=== PATIENT | female | born 1985 | race Caucasian/White ===

== ENCOUNTER 2022-04-20 09:03 | Emergency (ER) | payer OTHER, SELFPAY ==
--- NOTE | ~2022-04-20 | US_ITS ---
EXAMINATION: US OBSTETRICAL ULTRASOUND CLINICAL INFORMATION: Vaginal bleeding with pain. LMP 04/14/2022. COMPARISON: Pelvic ultrasound dated from 12/17/2013. CT abdomen/pelvis dated from 12/07/2015.. LMP: 04/14/2022. Gestational age by maternal dates is 6 days. Estimated date of delivery by maternal dates is 01/19/2023. TECHNIQUE: Ultrasound of the maternal pelvis is performed using transabdominal and transvaginal transducers. Transvaginal imaging is performed due to inadequate visualization transabdominally. FINDINGS: The uterus was not measured by the technologist. No fibroids are identified. No intrauterine gestational sacs are noted. The endometrium measures up to 0.6 cm in thickness and demonstrates heterogeneous debris with equivocal associated vascularity. Limited evaluation of the cervix due to overlying shadowing from bowel gas. The ovaries are normal in morphology with preserved color flow at the moment of this examination. The right ovary measures 3.4 x 2.3 x 2.3 cm and the left ovary measures 1.7 x 2.5 x 1.7 cm. There is a 1.3 cm simple appearing cyst originating exophytically from the left ovary versus a paraovarian cyst. Moderate amount of free fluid. US/US OB pelvic and transvaginal IMPRESSION: No evidence of intrauterine . Recommend correlation with quantitative hCG. Heterogeneous endometrial content which could be associated with blood products. However, there is some equivocal vascularity and retained product of conception are not entirely excluded. Recommend correlation with quantitative hCG and a very short-term follow-up pelvic ultrasound. Moderate amount of free fluid in the pelvis. There is a 1.3 cm simple left ovarian versus paraovarian cyst, almost certainly benign and for which imaging no follow-up is recommended.
[2022-04-20 09:39] VITALS: BP 123/72; PULSE 74; RESP 19; TEMP 36.2; O2SAT 99; BMI 35.2
--- NOTE | 2022-04-20 09:43 | ED_ITS ---
HPI - Female Genitourinary General Chief complaint: Vaginal Bleeding Stated complaint: heavy vaginal bleeding quest miscarriage Time Seen by Provider: 04/20/22 09:43 Source: patient Mode of arrival: ambulatory Limitations: no limitations History of Present Illness HPI Narrative: 36 yo female with hx of irregular menses unsure why, G4PO all miscarriages not on control states she never had it worked up why she had miscarriages notes she started a ligther than usual period on thought she would be done today. On her way to work developed cramping and passed a stringy clot since then has had heavier bleeding not that much but was worried she was having another miscarriage. Has not taken a test at home. MD elicited complaint: vaginal bleeding Pertinent past history: prior miscarriages Onset (ago): day(s) (7) Location of symptoms: suprapubic Severity: moderate Quality of pain: cramping Vaginal bleeding: moderate and clots Exacerbating factors: menstrual period Relieving factors: none Associated symptoms: abdominal pain Sexual activity: Yes Possible : unsure if Related Data Allergies Allergy/AdvReac Type Severity Reaction Status Date / Time Penicillins [PENICILLINS] Allergy Unknown UNKNOWN Verified 04/20/22 09:39 Review of Systems Review of Systems: Constitutional : No Fever, No Chills ENT/Mouth : No sore throat, No Rhinorrhea Eyes: No Eye Pain, No Redness Cardiovascular : No Chest Pain, No SOB Respiratory : No Cough, No Sputum, No Wheezing Gastrointestinal : no Nausea, No Vomiting, No Diarrhea, positive abdominal pain, Genitourinary : positive irregular bleeding, No Dysuria, No Urinary Frequency, positive pelvic pain Musculoskeletal : No Myalgias Skin : No rash Neuro : No Weakness, No Headache Psych : No Anxiety/Panic, No Depression Heme/Lymph: No bruising, No Lymphadenopathy Endocrine : No Polyuria, No Polydipsia All other systems reviewed and are negative [facility] Past Medical History Attestation statement: The following information was validated with the patient. Medical History History of multiple miscarriages Irregular menses Social History Social History (Updated 04/20/22 @ 09:59 by Elodia Chan DO) Patient Tobacco Use Status: Never used Tobacco Substance Use Type: Marijuana Advance Directives: No Advance Directives Information Provided: No Physical Exam Vital Signs: Vital Signs: Last Vital Signs Temp 97.8 F 04/20/22 10:11 Pulse 66 04/20/22 10:11 Resp 14 04/20/22 10:11 BP 135/83 04/20/22 10:11 Pulse Ox 96 04/20/22 10:11 O2 Del Method 04/20/22 10:11 BMI result Body Mass Index 35.2 Appearance: Alert. Oriented X3. No acute distress. Eyes: Pupils equal, round and reactive to light. ENT: Pharynx normal. Neck: Normal inspection. Neck supple. CVS: Normal heart rate and rhythm. Pulses normal. Respiratory: No respiratory distress. Breath sounds normal. Abdomen: Soft and mild suprapubic pain no rebound : os is closed, brb in vault no tissue or clots seen, 2 scopettes of blood seen Skin: Skin warm and dry. Normal skin color. Normal skin turgor. Extremities: No lower extremity edema. No calf ttp Neuro: Oriented X 3. No motor deficit. No sensory deficit. Course Course Course Narrative: B neg - Rhogam ordered OB aware unless US concerning follow up with quant in 24 hours given outpatient lab slip for quant VS stable no sig bleeding DC home with OB follow up with Dr. Saunders MDM - Female Genitourinary MDM Narrative Medical decision making narrative: 36 yo female with hx of irregular menses and prior miscarriages presents with irregular bleeding and cramps - os is closed no tissue seen at this time will need labs, quant, PO pain control. Unsure if this painful menses vs miscarriage - dispo per quant. Lab Data Result diagrams: 04/20/22 10:05 04/20/22 10:05 Labs: Lab Results 04/20/22 04/20/22 04/20/22 Range/Units 10:05 10:05 10:05 WBC 8.2 (4.8-10.8) X10*3/uL RBC 4.81 (4.20-5.50) X10*6/uL Hgb 13.6 (12.0-16.0) g/dl Hct 40.6 (37.0-47.0) % MCV 84.4 (80.0-98.0) fL MCH 28.3 (27.0-33.0) pg MCHC 33.5 (31.0-35.0) g/dl RDW 13.2 (11.0-16.0) % Plt Count 358 (160-400) X10*3/uL MPV 8.2 L (9.4-12.3) fL Immature Gran % (Auto) 1.0 H (0.0-0.4) % Neut % (Auto) 53.9 (45-73) % Lymph % (Auto) 35.6 (20-40) % [place] % (Auto) 8.0 (2-11) % Eos % (Auto) 1.0 (0-4) % Baso % (Auto) 0.5 (0-2) % Lymph # (Auto) 2.9 (1.2-4.9) X10*3/uL [place] # (Auto) 0.7 (0.1-1.2) X10*3/uL Eos # (Auto) 0.1 (0.0-0.4) X10*3/uL Baso # (Auto) 0.0 (0.0-0.2) X10*3/uL Abs Immat Gran (auto) 0.08 H (0.00-0.03) X10*3/uL Absolute Neuts (auto) 4.4 (2.0-8.3) x10*3/uL Absolute Nucleated RBC 0.000 (0.0-0.012) X10*3/uL Nucleated RBC % (auto) 0.0 (0.0-0.2) /100WBC PT 12.0 (10.0-13.1) SEC INR 1.0 (0.9-1.1) Sodium 136 (135-145) mmol/L Potassium 4.1 (3.3-5.1) mmol/L Chloride 105 (96-108) mmol/L Carbon Dioxide 20 L (22-29) mmol/L Anion Gap 15 (12-20) BUN 9 (9-16) mg/dL Creatinine 0.67 (0.5-1.4) mg/dL Estim Creat Clear Calc 134.4 Estimated GFR > 60 Random Glucose 109 (60-115) mg/dL Calcium 9.6 (8.4-10.2) mg/dL Total Bilirubin 0.5 (0.0-1.0) mg/dL Direct Bilirubin 0.2 (0.0-0.5) mg/dL AST 19 (5-31) U/L ALT 29 (0-31) U/L Alkaline Phosphatase 47 (39-117) U/L Total Protein 6.8 (6.5-8.0) g/dL Albumin 4.2 (3.5-5.0) g/dL Beta HCG, Quant 22 mIU/mL Blood Type 04/20/22 Range/Units 10:48 WBC (4.8-10.8) X10*3/uL RBC (4.20-5.50) X10*6/uL Hgb (12.0-16.0) g/dl Hct (37.0-47.0) % MCV (80.0-98.0) fL MCH (27.0-33.0) pg MCHC (31.0-35.0) g/dl RDW (11.0-16.0) % Plt Count (160-400) X10*3/uL MPV (9.4-12.3) fL Immature Gran % (Auto) (0.0-0.4) % Neut % (Auto) (45-73) % Lymph % (Auto) (20-40) % [place] % (Auto) (2-11) % Eos % (Auto) (0-4) % Baso % (Auto) (0-2) % Lymph # (Auto) (1.2-4.9) X10*3/uL [place] # (Auto) (0.1-1.2) X10*3/uL Eos # (Auto) (0.0-0.4) X10*3/uL Baso # (Auto) (0.0-0.2) X10*3/uL Abs Immat Gran (auto) (0.00-0.03) X10*3/uL Absolute Neuts (auto) (2.0-8.3) x10*3/uL Absolute Nucleated RBC (0.0-0.012) X10*3/uL Nucleated RBC % (auto) (0.0-0.2) /100WBC PT (10.0-13.1) SEC INR (0.9-1.1) Sodium (135-145) mmol/L Potassium (3.3-5.1) mmol/L Chloride (96-108) mmol/L Carbon Dioxide (22-29) mmol/L Anion Gap (12-20) BUN (9-16) mg/dL Creatinine (0.5-1.4) mg/dL Estim Creat Clear Calc Estimated GFR Random Glucose (60-115) mg/dL Calcium (8.4-10.2) mg/dL Total Bilirubin (0.0-1.0) mg/dL Direct Bilirubin (0.0-0.5) mg/dL AST (5-31) U/L ALT (0-31) U/L Alkaline Phosphatase (39-117) U/L Total Protein (6.5-8.0) g/dL Albumin (3.5-5.0) g/dL Beta HCG, Quant mIU/mL Blood Type B Negative Discharge Plan Discharge Clinical Impression: Vaginal bleeding, Positive blood test Patient Disposition: Home, Self-Care Instructions: Rho(D) Immune Globulin (By injection), Threatened Miscarriage ( ED), (ED) Additional Instructions: return to ED for any worsening symptoms or concerns return for dizziness, increase in bleeding, clots larger than a quarter, severe pain repeat hormone test in 48 hours - present to main entrance, please follow up with our OB clinic call today for appointment in 48 hours no sexual intercourse US/US OB pelvic and transvaginal IMPRESSION: No evidence of intrauterine . Recommend correlation with quantitative hCG. ? Heterogeneous endometrial content which could be associated with blood products. However, there is some equivocal vascularity and retained product of conception are not entirely excluded. Recommend correlation with quantitative hCG and a very short-term follow-up pelvic ultrasound. ? Moderate amount of free fluid in the pelvis. ? There is a 1.3 cm simple left ovarian versus paraovarian cyst, almost certainly benign and for which imaging no follow-up is recommended. Referrals: Fuad Saunders MD [Physician] - (follow up tomorrow with Dr. Saunders) Stand Alone Forms: Work/School Release
[2022-04-20 10:10] LABS: MANUAL DIFF FLAG NO
[2022-04-20 10:11] VITALS: BP 135/83; PULSE 66; RESP 14; TEMP 36.6; O2SAT 96
[2022-04-20 10:18] LABS: Basophils Percent Auto 0.5 % (0-2); Eosinophils Absolute Auto 0.1 X10*3/uL (0.0-0.4); Hematocrit 40.6 % (37.0-47.0); Hemoglobin 13.6 g/dl (12.0-16.0); Imm Gran Abs Auto 0.08 X10*3/uL (0.00-0.03); Lymphocytes Absolute Auto 2.9 X10*3/uL (1.2-4.9); Lymphocytes Percent Auto 35.6 % (20-40); Mean Corpuscular HGB Conc 33.5 g/dl (31.0-35.0); Mean Corpuscular Hemoglobin 28.3 pg (27.0-33.0); Mean Corpuscular Volume 84.4 fL (80.0-98.0); Mean Platelet Volume 8.2 fL (9.4-12.3); Monocytes Absolute Auto 0.7 X10*3/uL (0.1-1.2); Neutrophils Absolute Auto 4.4 x10*3/uL (2.0-8.3); Neutrophils Percent Auto 53.9 % (45-73); Platelet Count 358 X10*3/uL (160-400); Red Blood Count 4.81 X10*6/uL (4.20-5.50); Red Cell Distribution Width 13.2 % (11.0-16.0); White Blood Count 8.2 X10*3/uL (4.8-10.8)
[2022-04-20] MEDS: HYDROcodone Bit/Acetam 5/325 TABLET 1 TAB PO (10:21)
[2022-04-20] MEDS: Ondansetron ODT 4 MG TAB.RAPDIS TRANSLINGU (10:21)
--- NOTE | 2022-04-20 10:29 | PC.NURSE ---
Pt ao x4. Regular heart sounds with normal rhythm. Lung sounds are clear bilaterally. Breaths are even and unlabored. Abd is soft, and tender, with active bowel sounds in all quadrants. Pt reports severe lower abd pain with vaginal bleeding. Started menses last , 04/14/22, with some spotting but this morning bleeding was heavier with what pt describes a string discharge. Pt is on second maxi pad since 0700. Reports hx of miscarriage and expresses concerns.
[2022-04-20 10:30] LABS: Alanine Aminotransferase 29 U/L (0-31); Albumin Level 4.2 g/dL (3.5-5.0); Alkaline Phosphatase 47 U/L (39-117); Anion Gap 15 (12-20); Aspartate Amino Transferase 19 U/L (5-31); Bilirubin Direct 0.2 mg/dL (0.0-0.5); Bilirubin Total 0.5 mg/dL (0.0-1.0); Blood Urea Nitrogen 9 mg/dL (9-16); Calcium 9.6 mg/dL (8.4-10.2); Carbon Dioxide 20 mmol/L (22-29); Chloride 105 mmol/L (96-108); Creatinine Clr Calc Pharmacy 134.4; Estimated Glomerular Filt Rate > 60; Glucose Random 109 mg/dL (60-115); HCG Quantitative 22 mIU/mL; Potassium 4.1 mmol/L (3.3-5.1); Sodium 136 mmol/L (135-145); Total Protein 6.8 g/dL (6.5-8.0)
[2022-04-20] MEDS: Rho(D) Immune Globulin 300 MCG SYRINGE IM (12:09)
--- NOTE | 2022-04-20 13:12 | P.CONOB_ITS ---
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 The patient has oligomenorrhea and have menstrual cycle every 3-4 months. Yesterday the patient started having vaginal bleeding light with no pelvic cramping no other associated symptoms, this morning the patient woke up with heavy vaginal bleeding and pelvic cramping . In the emergency room H&H = 13.6/40.4, chemistry was negative, hCG is 22, Rh negative, the patient received RhoGAM. A pelvic ultrasound was done. The patient pelvic cramping has resolved and bleeding has slowed down markedly since arrival to the emergency room cc:: CC: IP NETWORK ARCHITECT - Review of Systems Review of Systems ROS Unobtainable: All systems reviewed & are unremarkable except as noted in HPI and below Cardiovascular: Denies Palpatations, Loss of consciousness or Chest pain Respiratory: Denies Cough, Wheezing or Shortness of breath Musculoskeletal: Denies Low back pain Gastrointestinal: Denies Heartburn, Constipation, Diarrhea, Nausea or Vomiting Genitourinary: Denies Pain with urination, Burning with urination or Urinary frequency Neurological: Denies Migranes Psychological: Denies Depression OB PMFSH Past Medical History Medical History (Updated 04/20/22 @ 13:42 by Fuad Saunders MD) Ectopic History of multiple miscarriages Irregular menses Social History Social History Patient Tobacco Use Status: Never used Tobacco Substance Use Type: Marijuana Advance Directives: No Advance Directives Information Provided: No Meds Allergies Allergy/AdvReac Type Severity Reaction Status Date / Time Penicillins [PENICILLINS] Allergy Unknown UNKNOWN Verified 04/20/22 09:39 MICA MACHINE OPERATOR Physical Exam Vitals Vital signs: Temp Pulse Resp BP Pulse Ox O2 Del Method 97.8 F 66 14 135/83 96 04/20/22 10:11 04/20/22 10:11 04/20/22 10:11 04/20/22 10:11 04/20/22 10:11 04/20/22 10:11 BMI result Body Mass Index 35.2 Constitutional General Appearance: Healthy appearing, Well-nourished and Well-developed Psychiatric Mood and Affect: active and alert, normal mood and normal affect Skin Appearance: No rashes and No lesions Lungs Respiratory Effort: No intercostal retractions Auscultation: Clear to auscultation Cardiovascular Auscultation: RRR Abdomen Auscultation/Inspection/Palpation: Normal bowel sounds, Soft, Non-distended and No tenderness Female Genitalia (Pelvic) Bladder/Urethra: Normal meatus Vulva: No lesions Vagina: Nontender Cervix: Grossly normal and No cervical motion tenderness Uterus: Normal size Adnexa/Parametria: Adnexal Tenderness: None, Adnexal Mass: None, Parametrial Tenderness: None and Parametrial Mass: None Additional Comments: Minimal blood per vagina, closed cervix, no active bleeding MICA MACHINE OPERATOR - Results Labs CBC & Chem 7: 04/20/22 10:05 04/20/22 10:05 Labs: Short CBC 04/20/22 Range/Units 10:05 WBC 8.2 (4.8-10.8) X10*3/uL Hgb 13.6 (12.0-16.0) g/dl Hct 40.6 (37.0-47.0) % Plt Count 358 (160-400) X10*3/uL BMP 04/20/22 10:05 Sodium 136 Potassium 4.1 Chloride 105 Carbon Dioxide 20 L BUN 9 Creatinine 0.67 Calcium 9.6 Liver Function 04/20/22 Range/Units 10:05 Total Bilirubin 0.5 (0.0-1.0) mg/dL Direct Bilirubin 0.2 (0.0-0.5) mg/dL AST 19 (5-31) U/L ALT 29 (0-31) U/L Alkaline Phosphatase 47 (39-117) U/L Albumin 4.2 (3.5-5.0) g/dL Imaging US - abdomen: Radiologist's impression: ITS Impressions Pelvic/Transvag US 04/20/22 11:14 IMPRESSION: No evidence of intrauterine . Recommend correlation with quantitative hCG. Heterogeneous endometrial content which could be associated with blood products. However, there is some equivocal vascularity and retained product of conception are not entirely excluded. Recommend correlation with quantitative hCG and a very short-term follow-up pelvic ultrasound. Moderate amount of free fluid in the pelvis. There is a 1.3 cm simple left ovarian versus paraovarian cyst, almost certainly benign and for which imaging no follow-up is recommended. Assessment and Plan (1) First trimester bleeding: Status: Acute GC and chlamydia, BV panel and Trichomonas collected. Discussed with the patient the results of her hCG being 22 and the ultrasound showing endometrial content which could be blood products versus retained products of conception. With the patient's history of ectopic , I explained to the patient there is a risk of recurrent ectopic . The differential diagnosis discussed with the patient includes not limited to: ectopic ,SAB (complete or incomplete) or early viable intrauterine . Recommended a repeat hCG in 24 hours, and follow-up in the office for an evaluation. Instructions given the patient to come back to emergency room in case of week pain, heavy vaginal bleeding temperature above 100.4, nausea or vomiting. All questions answered, the patient verbalized understanding. Case discussed with Dr. Chan.
--- NOTE | 2022-04-20 13:30 | PC.NURSE ---
Dr Saunders (OBGYN) performing pelvic exam with PCTLucila, at bedside. Pt tolerated well. Cultures sent to lab.
[2022-04-20 13:44] VITALS: BP 114/75; PULSE 68; RESP 14; O2SAT 98
[2022-04-20 16:02] LABS: CT PCR NOT DETECTED (Not Detect.); NG PCR NOT DETECTED (Not Detect.)
[2022-04-21 13:45] LABS: BV Int Neg Control Negative (Negative); BV Int Pos Control Positive (Positive)
== END 2022-04-20 13:45 | disposition home or self-care (01) ==
PROVIDERS: Emergency Provider Emergency Medicine; PCP Nurse Practitioner Family
DX: O20.9 Hemorrhage in early pregnancy, unspecified (principal); Z3A.01 Less than 8 weeks gestation of pregnancy
CPT/HCPCS: 36415; 76801; 76817; 80048; 80076; 84702; 85025; 85610; 86900; 86901; 87480; 87491; 87510; 87591; 87660; 96372; 99284; J2790

== ENCOUNTER 2022-04-21 09:06 | Outpatient (REF) | payer OTHER, SELFPAY ==
[2022-04-21 10:15] LABS: HCG Quantitative 15 mIU/mL
== END 2022-04-21 09:07 | disposition home or self-care (01) ==
LOC: HO.LAB 09:06
PROVIDERS: Obstetrics & Gynecology; PCP Nurse Practitioner Family; Visit Provider Emergency Medicine
DX: O20.9 Hemorrhage in early pregnancy, unspecified (principal)
CPT/HCPCS: 36415; 84702; 99212

== ENCOUNTER 2022-05-03 09:35 | Outpatient (REF) | payer OTHER, SELFPAY ==
[2022-05-03 12:07] LABS: HCG Quantitative < 2 mIU/mL
== END 2022-05-03 09:36 | disposition home or self-care (01) ==
LOC: HO.LAB 09:35
PROVIDERS: Visit Provider Obstetrics & Gynecology
DX: O20.9 Hemorrhage in early pregnancy, unspecified (principal)
CPT/HCPCS: 36415; 84702

== ENCOUNTER → 2022-05-04 13:01 | Outpatient (BNVA) | payer OTHER, SELFPAY | PROVIDERS: PCP Nurse Practitioner Family; Visit Provider Obstetrics & Gynecology | DX: O03.9 Complete or unspecified spontaneous abortion without complication (principal); N96 Recurrent pregnancy loss | CPT/HCPCS: 99212 ==

== ENCOUNTER 2023-02-20 03:57 | Emergency (ER) | payer MEDICAID, SELFPAY ==
[2023-02-20 03:59] VITALS: BP 150/85; PULSE 108; RESP 22; TEMP 36.4; O2SAT 100; BMI 34.9
--- NOTE | 2023-02-20 04:40 | ED_ITS ---
HPI - General Adult General Chief complaint: Skin/Abscess/Foreign Body Stated complaint: Abscess Time Seen by Provider: 02/20/23 04:38 Source: patient Mode of arrival: ambulatory Limitations: no limitations History of Present Illness HPI narrative: 37-year-old female came in for evaluation of possible abscess and in the right private area, started 1 day ago, patient is sexually active with 1 person was no concern of STD. Related Data Home Medications Medication Instructions Recorded Confirmed atorvastatin 20 mg tablet 20 mg PO DAILY 04/21/22 Previous Rx's Medication Instructions Recorded misoprostol 200 mcg tablet 800 mcg vaginal ONCE 1 day #4 tabs 04/21/22 Allergies Allergy/AdvReac Type Severity Reaction Status Date / Time Penicillins [PENICILLINS] Allergy Unknown UNKNOWN Verified 05/04/22 13:10 Review of Systems Review of Systems: All other systems are reviewed and are negative Constitutional: Reports as per HPI and Reports no additional constitutional complaints Eyes: Reports as per HPI and Reports no additional eye complaints Reports system reviewed and no additional complaints, except as documented Cardiovascular: Reports as per HPI and Reports no additional cardiovascular complaints Respiratory: Reports as per HPI and Reports no additional respiratory complaints Gastrointestinal: Reports as per HPI and Reports no additional gastrointestinal complaints Genitourinary: Reports no additional female genitourinary complaints Musculoskeletal: Reports no additional musculoskeletal complaints Skin/Breast: Reports system reviewed and no additional complaints, except as docu Psychiatric: Reports no additional psychiatric complaints Endocrine: Reports no additional endocrine complaints Hematologic/Lymphatic: Reports no additional hematologic/lymphatic complaints Allergic/Immunologic: Reports no additional allergic/immunologic complaints Reports system reviewed and no additional complaints, except as documented and Reports Abnormal speech present [facility] Past Medical History Medical History Ectopic History of multiple miscarriages Irregular menses Social History Social History Alcohol intake: never Patient Tobacco Use Status: Never used Tobacco Smoked in Last 30 Days: No Use of substances other than those prescribed or required for medical reasons: Yes Substance Use Type: Marijuana Advance Directives: No Advance Directives Information Provided: Yes Patient : No Physical Exam ED Vital Signs: Vital Signs - 24 hr 02/20/23 03:59 Temperature 97.6 F Pulse Rate 108 H Respiratory Rate 22 H Blood Pressure 150/85 H Pulse Oximetry 100 Oxygen Delivery Method Room Air BMI result Body Mass Index 34.9 Vital signs have been reviewed as appeared to be correct. Blood pressure normal. Heart rate normal. Respiration rate normal. Temperature normal. Oxygen saturation normal. Appearance: Alert. Oriented X3. No acute distress. Head: Normal external exam. Normocephalic. Atraumatic. No Mart signs noted. No raccoon eyes noted Eyes: PERRLA. EOMI. Conjunctiva and sclera normal. Eyelids normal. ENT: TM's Normal. Pharynx normal. Uvula midline. Moist mucous membranes. No trismus noted. No drooling noted. No muffled voice noted. Neck: Normal inspection. Neck supple. FROM. No adenopathy. Thyroid Normal. No meningeal signs. No neck mass noted. CVS: Normal heart rate and rhythm. Heart sound normal. No murmurs noted. Pulses normal throughout. Respiratory: No respiratory distress. Painless inspiration. Breath sounds normal. No wheezes/rales/rhonchi noted. Chest nontender. No accessory muscle usage noted or decreased air movement noted. Abdomen: Soft and nontender. Bowel sounds normal in all 4 quadrants. No distention noted. No organomegaly noted. No visible injury noted. pelvic exam: 2 x 2 cm area of fluctuation on the right labia majora tender to touch. Back: No CVA tenderness. Full range of motion noted. Skin: Skin warm and dry. Normal skin color. Normal skin turgor. No rashes/lesions/lacerations noted. Extremities: No lower extremity edema. Extremities exhibit normal range of motion. Extremities nontender. Neuro: Oriented X 3. Cranial nerve exam: II-XII are grossly intact No motor deficit. No sensory deficit. Reflexes normal. Course Course Course Narrative: S/p I&D of abscess of Bartholin's gland Medications Administered Discontinued Medications Generic Name Dose Route Start Last Admin Trade Name Freq PRN Reason Stop Dose Admin Lidocaine HCl 5 ml 02/20/23 04:38 02/20/23 04:44 Lidocaine Hcl 1 % Mpf 5 Ml Vial SUBCUT 02/20/23 04:39 5 ml ONCE ONE Administration Lorazepam 2 mg 02/20/23 04:38 02/20/23 04:44 Lorazepam 1 Mg Tablet PO 02/20/23 04:39 2 mg ONCE ONE Administration Procedures Abscess I/D Site: bartholin's gland Side (if applicable): right Local Anesthetic: lidocaine 1% Amount of anesthesia used (mL): 3 Technique: incised with blade (Size 11) Amount of fluid expressed (mL): 5 Sent for culture/gram staining?: No Irrigation: No Packing used?: none Discharge Plan Discharge Clinical Impression: Abscess of Bartholin's gland Patient Disposition: Home, Self-Care Instructions: Incision and Drainage (ED) Prescriptions: No Action atorvastatin 20 mg tablet 20 mg PO DAILY misoprostol 200 mcg tablet 800 mcg vaginal ONCE 1 Days Qty: 4 0RF Rx Instructions: Inset 800 mcg vaginal dose x1 Referrals: Fuad Saunders MD [Physician] -
--- OUTSIDE RECORDS SUMMARY | 2023-02-20 04:40 | XMS_ITS | Continuity of Care Document ---
Author Name Unknown Organization [facility] Address [address] [place] [address], [address]t [address] [place] [phone] Care Team Providers Care Spud Grader Name Role Phone Not on Staff, PCP Primary Care Physician Unavail able Encounter [facility] Date(s): 07/05/22 - 08/04/22 [facility] [address] [place] [address], [address] [place] [id number] Attending Physician: Cher Rivero Admitting Physician: Cher Rivero Referring Physician: Admtr [id number] Patient Care team information Care Team Personnel Name: Not on Staff, PCP Position: S Physician (General Medicine) Member Role: PCP Care Team Related Persons Name: CHI QUESADA Address: home [address] [place] [id number] Name: TORO LEE
--- OUTSIDE RECORDS SUMMARY | 2023-02-20 04:40 | XMS_ITS | Continuity of Care Document ---
Author Name Unknown Organization [facility] Address [address] [facility], 4t [address] [place] [id number] Care Team Providers Care Radiation Control Health Physicist Name Role Phone Not on Staff, PCP Primary Care Physician Unavail able Encounter [facility] Date(s): 05/09/22 - 08/04/22 [facility] [address] [facility], 4th [address] [place] [id number]- Attending Physician: Not on Staff, Attending MD Referring Physician: Fuad Saunders MD Patient Care team information Care Team Personnel Name: Not on Staff, PCP Position: S Physician (General Medicine) Member Role: PCP Care Team Related Persons Name: CHI QUESADA Address: home [address] [place] [address] Name: TORO LEE
[2023-02-20] MEDS: Lidocaine HCl 1 % MPF 5 ML VIAL SUBCUT (04:44)
[2023-02-20] MEDS: LORazepam 1 MG TABLET 2 MG PO (04:44)
--- NOTE | 2023-02-20 04:56 | PC.NURSE ---
lidocaine administered by MD Gonzales
--- NOTE | 2023-02-20 05:11 | PC.NURSE ---
Patient tolerated procedure well. Abscess drained. Gauze placed over incision. Patient states less discomfort.
== END 2023-02-20 05:41 | disposition home or self-care (01) ==
PROVIDERS: Emergency Provider Emergency Medicine
DX: N75.1 Abscess of Bartholin's gland (principal)
CPT/HCPCS: 56420; 99284

== ENCOUNTER 2024-12-14 12:33 | Emergency (ER) | payer MEDICAID, SELFPAY ==
--- NOTE | ~2024-12-14 | US_ITS ---
CLINICAL HISTORY: +left sided pelvic pain, bleeding, +. h o --- Additional Notes or Special I nstructions: h o ectopic US OB 1st trimester transabdominal and transvaginal Comparison: US/AR/SR - US OB PELVIC AND TRANSVAGINAL - 04/20/22 10:55 EDT Findings: No intrauterine gestation noted. Reportedly quantitative HC The endometrium measures 2 mm The uterus appears within normal limits. The right ovary measures 2.7 x 1.7 x 1.7 cm The left ovary measures 3.5 x 1.6 x 1.9 cm. Normal color Doppler bilaterally. Tubular fluid-filled structure adjacent to the right ovary. Impression: There is no intrauterine gestation however the quantitative HCG is reportedly extremely low. Continued follow-up recommended. Probable hydrosalpinx on the right. This document has been electronically signed by: Crow Sultana MD on 12/14/2024 16:45:04
--- NOTE | 2024-12-14 12:41 | ED_ITS ---
HPI - Abdominal Pain General Chief Complaint: Abdominal Pain Stated Complaint: Miscarriage? Time Seen by Provider: 12/14/24 13:55 Related Data Home Medications ?Medication ?Instructions ?Recorded ?Confirmed atorvastatin 20 mg tablet 20 mg PO DAILY 04/21/22 Previous Rx's ?Medication ?Instructions ?Recorded misoprostol 200 mcg tablet 800 mcg (4 x 200 mcg) vaginal ONCE 04/21/22 1 day #4 tabs Allergies Allergy/AdvReac Type Severity Reaction Status Date / Time Penicillins [PENICILLINS] Allergy Unknown UNKNOWN Verified 12/14/24 12:45 [facility] Past Medical History Medical History Ectopic History of multiple miscarriages Irregular menses Social History Social History Alcohol intake: never Patient Tobacco Use Status: Never used Tobacco Smoked in Last 30 Days: No Use of substances other than those prescribed or required for medical reasons: No Substance Use Type: Marijuana Advance Directives: No Advance Directives Information Provided: No Physical Exam ED Vital Signs: Vital Signs - 24 hr 12/14/24 12:43 12/14/24 17:17 12/14/24 17:17 Temperature 98 F 98.5 F 98.5 F Pulse Rate 85 85 85 Respiratory Rate 18 18 18 Blood Pressure 132/79 145/70 H 145/70 H Pulse Oximetry 98 95 95 Oxygen Delivery Method Room Air Room Air Room Air BMI result Body Mass Index 35.9 Course Course Course Narrative: 12/14 1241 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 Has irregular menses but has had some unusual vaginal bleeding in the last few weeks. +nausea. LMP 15. h/o multiple miscarriages and ectopic pregnancies. Will obtain labs, UA VSS Medical Decision Making Lab Data 12/14/24 13:00 12/14/24 13:00 Labs: Lab Results 12/14/24 Range/Units 13:00 WBC 7.2 (4.8-10.8) X10*3/uL RBC 4.89 (4.20-5.50) X10*6/uL Hgb 13.9 (12.0-16.0) g/dl Hct 41.2 (37.0-47.0) % MCV 84.3 (80.0-98.0) fL MCH 28.4 (27.0-33.0) pg MCHC 33.7 (31.0-35.0) g/dl RDW 13.4 (11.0-16.0) % Plt Count 376 (160-400) X10*3/uL MPV 8.0 L (9.4-12.3) fL Immature Gran % (Auto) 0.6 H (0.0-0.4) % Neut % (Auto) 45.1 (45-73) % Lymph % (Auto) 44.2 H (20-40) % [place] % (Auto) 8.1 (2-11) % Eos % (Auto) 1.4 (0-4) % Baso % (Auto) 0.6 (0-2) % Lymph # (Auto) 3.2 (1.2-4.9) X10*3/uL [place] # (Auto) 0.6 (0.1-1.2) X10*3/uL Eos # (Auto) 0.1 (0.0-0.4) X10*3/uL Baso # (Auto) 0.0 (0.0-0.2) X10*3/uL Abs Immat Gran (auto) 0.04 H (0.00-0.03) X10*3/uL Absolute Neuts (auto) 3.3 (2.0-8.3) x10*3/uL Absolute Nucleated RBC 0.000 (0.0-0.012) X10*3/uL Nucleated RBC % (auto) 0.0 (0.0-0.2) /100WBC Sodium 138 (135-145) mmol/L Potassium 4.0 (3.3-5.1) mmol/L Chloride 106 (96-108) mmol/L Carbon Dioxide 24 (22-29) mmol/L Anion Gap 12 (12-20) BUN 7 L (9-16) mg/dL Creatinine 0.63 (0.5-1.4) mg/dL Estim Creat Clear Calc 140.2 Estimated GFR > 60 Random Glucose 96 (60-115) mg/dL Calcium 9.3 (8.4-10.2) mg/dL Total Bilirubin 1.0 (0.0-1.0) mg/dL Direct Bilirubin 0.3 (0.0-0.5) mg/dL AST 33 H (5-31) U/L ALT 52 H (0-31) U/L Alkaline Phosphatase 48 (39-117) U/L Total Protein 7.3 (6.5-8.0) g/dL Albumin 4.5 (3.5-5.0) g/dL Beta HCG, Quant 91 mIU/mL Urine Color RED Urine Appearance Cloudy Urine pH 6.0 (5.0-9.0) Ur Specific [place] >= 1.030 H (1.005-1.025) Urine Protein 100 (2+) H (Neg-Trace) mg/dL Urine Glucose (UA) Negative (Negative) mg/dL Urine Ketones Trace (Negative) mg/dL Urine Blood Large (3+) H (Negative) Urine Nitrite Negative (Negative) Ur Leukocyte Esterase Negative (Negative) Urine RBC >20 H (0-2) /HPF Urine WBC 11-20 H (0-5) /HPF Ur Squamous Epith Cells >20 (0-2) /HPF Urine Bacteria 4+ (None Seen) Hyaline Casts 0-2 (0-2) /LPF Urine Test WEAKLY POSITIVE H (NEGATIVE) Medications Administered Discontinued Medications Generic Name Dose Route Start Last Admin Trade Name Inna PRN Reason Stop Dose Admin Acetaminophen 975 mg 12/14/24 14:09 12/14/24 14:17 Acetaminophen 325 Mg Tablet PO 12/14/24 14:10 975 mg ONCE ONE Administration Discharge Plan Discharge Clinical Impression: Recurrent loss, Abnormal vaginal bleeding Patient Disposition: Home, Self-Care Instructions: Menorrhagia (ED) Additional Instructions: You were seen in the Emergency Department today for abnormal vaginal bleeding. Your blood counts were stable. Your beta hCG quant is 91. Ultrasound showed no evidence of . Continue Tylenol at home for pain, 1000 mg every 8 hours. Do not take aspirin containing products. You need to follow up with your OBGYN in 2 days for re-evaluation and repeat beta-hCG testing. Please return for worsening symptoms such as pain, dizziness, fainting, bleeding this is much heavier than a period and you are having large clots bigger than a golf ball. Please see list of OGBYN providers below if you do not have one. OBGYN and Midwifery [facility] [address] [place] [phone] [facility] [address] [facility] [phone] [facility] [address] [phone] [facility] and Midwifery [place] [phone] [facility] [place] [phone] Prescriptions: No Action atorvastatin 20 mg tablet 20 mg PO DAILY misoprostol 200 mcg tablet 800 mcg vaginal ONCE 1 Days Qty: 4 0RF Rx Instructions: Inset 800 mcg vaginal dose x1 Interventions: ED Discharge Assessment Last Done: 12/14/24 17:17 Discharge Date/Time: 12/14/24 17:18 Print Language: Amharic
[2024-12-14 12:43] VITALS: BP 132/79; PULSE 85; RESP 18; TEMP 36.6; O2SAT 98; BMI 35.9
[2024-12-14 13:05] LABS: Basophils Percent Auto 0.6 % (0-2); Eosinophils Absolute Auto 0.1 X10*3/uL (0.0-0.4); Eosinophils Percent Auto 1.4 % (0-4); Hematocrit 41.2 % (37.0-47.0); Hemoglobin 13.9 g/dl (12.0-16.0); Imm Gran Abs Auto 0.04 X10*3/uL (0.00-0.03); Imm Gran Pct Auto 0.6 % (0.0-0.4); Lymphocytes Absolute Auto 3.2 X10*3/uL (1.2-4.9); Lymphocytes Percent Auto 44.2 % (20-40); MANUAL DIFF FLAG NO; Mean Corpuscular HGB Conc 33.7 g/dl (31.0-35.0); Mean Corpuscular Hemoglobin 28.4 pg (27.0-33.0); Mean Corpuscular Volume 84.3 fL (80.0-98.0); Monocytes Absolute Auto 0.6 X10*3/uL (0.1-1.2); Monocytes Percent Auto 8.1 % (2-11); Neutrophils Absolute Auto 3.3 x10*3/uL (2.0-8.3); Neutrophils Percent Auto 45.1 % (45-73); Platelet Count 376 X10*3/uL (160-400); Red Blood Count 4.89 X10*6/uL (4.20-5.50); Red Cell Distribution Width 13.4 % (11.0-16.0); White Blood Count 7.2 X10*3/uL (4.8-10.8)
[2024-12-14 13:09] LABS: UPreg QC Valid YES; Urine Pregnancy WEAKLY POSITIVE (NEGATIVE)
[2024-12-14 13:12] LABS: Appearance Urine Cloudy; Color Urine RED; Glucose Urine UA Negative (Negative); Leukocyte Esterase Urine Negative (Negative); Nitrite Urine Negative (Negative); Specific Gravity - Urine >= 1.030 (1.005-1.025); UMIC TRIGGER UACC YES; Urine Blood Large (3+) (Negative); Urine Ketones Trace mg/dL (Negative); Urine Protein 100 (2+) mg/dL (Neg-Trace)
[2024-12-14 13:19] LABS: Bacteria Urine 4+ (None Seen); Hyaline Casts Urine 0-2 /LPF (0-2); RBC Urine >20 /HPF (0-2); Squamous Epithelial Cell Urine >20 /HPF (0-2); UACC Culture Trigger YES
[2024-12-14 13:27] LABS: Alanine Aminotransferase 52 U/L (0-31); Albumin Level 4.5 g/dL (3.5-5.0); Alkaline Phosphatase 48 U/L (39-117); Anion Gap 12 (12-20); Aspartate Amino Transferase 33 U/L (5-31); Bilirubin Direct 0.3 mg/dL (0.0-0.5); Blood Urea Nitrogen 7 mg/dL (9-16); Calcium 9.3 mg/dL (8.4-10.2); Carbon Dioxide 24 mmol/L (22-29); Chloride 106 mmol/L (96-108); Creatinine Clr Calc Pharmacy 140.2; Estimated Glomerular Filt Rate > 60; Glucose Random 96 mg/dL (60-115); HCG Quantitative 91 mIU/mL; Sodium 138 mmol/L (135-145); Total Protein 7.3 g/dL (6.5-8.0)
[2024-12-14] MEDS: Acetaminophen 325 MG TABLET 975 MG PO (14:17)
--- NOTE | 2024-12-14 16:51 | ED.ABDPAIN ---
HPI - Abdominal Pain General Chief Complaint: Abdominal Pain Stated Complaint: Miscarriage? Time Seen by Provider: 12/14/24 13:55 Source: patient Mode of arrival: ambulatory Limitations: no limitations History of Present Illness ED Provider: Nael Bynum DO HPI narrative: 39-year-old female with past medical history of irregular menstrual cycles (last menstrual cycle in September 2024) with multiple ectopic pregnancies miscarriages (patient does not know how many) and no live births presents to the ED for 1 week of or quadrant abdominal pain and vaginal bleeding consistent with her menstrual cycles. Because the pain has been ongoing for a week, the patient was concern for recurrent miscarriage. She denies urinary symptoms, fevers, chills, nausea, vomiting or profuse vaginal bleeding, going through 1 pad per day. She denies concern for sexually transmitted infection. Related Data Home Medications ?Medication ?Instructions ?Recorded ?Confirmed atorvastatin 20 mg tablet 20 mg PO DAILY 04/21/22 Previous Rx's ?Medication ?Instructions ?Recorded misoprostol 200 mcg tablet 800 mcg (4 x 200 mcg) vaginal ONCE 04/21/22 1 day #4 tabs Allergies Allergy/AdvReac Type Severity Reaction Status Date / Time Penicillins [PENICILLINS] Allergy Unknown UNKNOWN Verified 12/14/24 12:45 Review of Systems Review of Systems Yes all other systems are reviewed and are negative PMFSH Past Medical History Medical History Ectopic History of multiple miscarriages Irregular menses Social History Social History Alcohol intake: never Patient Tobacco Use Status: Never used Tobacco Smoked in Last 30 Days: No Use of substances other than those prescribed or required for medical reasons: No Substance Use Type: Marijuana Advance Directives: No Advance Directives Information Provided: No Physical Exam ED Vital Signs: Vital Signs - 24 hr 12/14/24 12:43 Temperature 98 F Pulse Rate 85 Respiratory Rate 18 Blood Pressure 132/79 Pulse Oximetry 98 Oxygen Delivery Method Room Air BMI result Body Mass Index 35.9 Constitutional: ?Alert, oriented, speaking in full sentences HEENT: ?Normocephalic, atraumatic. Eyes: ?PERRL, EOMI Neck: ?Supple, nontender Chest: ?No chest wall tenderness Respiratory: no increased work of breathing Cardio: ?Regular rate and rhythm GI: ?Soft, nondistended, no tenderness to deep palpation Back: ?Normal range of motion, nontender Skin: ?No rash, no lesions Neuro: ?Alert and oriented to person, place and time, moves all 4 extremities, no focal deficits Extremities: ?No swelling or tenderness, full range of motion Psych: ?Calm, alert and cooperative, appropriate behavior Medical Decision Making Medical Decision Making [facility] Narrative: Patient presenting with abdominal discomfort and vaginal bleeding. Differential diagnosis is broad including abnormal uterine bleeding, normal , miscarriage or ectopic . The patient is vitally stable, well-appearing and responds to acetaminophen with minimal pain thereafter. Unremarkable labs with the exception of a beta hCG quant of 91. Ultrasound shows no obvious , but given probable hydrosalpinx on the right side, this does raise concern for possible ectopic . This is more likely a miscarriage. 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 I provided return precautions for any worsening symptoms concerning for ruptured ectopic or any other new developments in her course. Patient agrees with plan. Lab Data [facility] Lab Attestation statement: I reviewed the patient's lab results. 12/14/24 13:00 12/14/24 13:00 Labs: Lab Results 12/14/24 Range/Units 13:00 WBC 7.2 (4.8-10.8) X10*3/uL RBC 4.89 (4.20-5.50) X10*6/uL Hgb 13.9 (12.0-16.0) g/dl Hct 41.2 (37.0-47.0) % MCV 84.3 (80.0-98.0) fL MCH 28.4 (27.0-33.0) pg MCHC 33.7 (31.0-35.0) g/dl RDW 13.4 (11.0-16.0) % Plt Count 376 (160-400) X10*3/uL MPV 8.0 L (9.4-12.3) fL Immature Gran % (Auto) 0.6 H (0.0-0.4) % Neut % (Auto) 45.1 (45-73) % Lymph % (Auto) 44.2 H (20-40) % [place] % (Auto) 8.1 (2-11) % Eos % (Auto) 1.4 (0-4) % Baso % (Auto) 0.6 (0-2) % Lymph # (Auto) 3.2 (1.2-4.9) X10*3/uL [place] # (Auto) 0.6 (0.1-1.2) X10*3/uL Eos # (Auto) 0.1 (0.0-0.4) X10*3/uL Baso # (Auto) 0.0 (0.0-0.2) X10*3/uL Abs Immat Gran (auto) 0.04 H (0.00-0.03) X10*3/uL Absolute Neuts (auto) 3.3 (2.0-8.3) x10*3/uL Absolute Nucleated RBC 0.000 (0.0-0.012) X10*3/uL Nucleated RBC % (auto) 0.0 (0.0-0.2) /100WBC Sodium 138 (135-145) mmol/L Potassium 4.0 (3.3-5.1) mmol/L Chloride 106 (96-108) mmol/L Carbon Dioxide 24 (22-29) mmol/L Anion Gap 12 (12-20) BUN 7 L (9-16) mg/dL Creatinine 0.63 (0.5-1.4) mg/dL Estim Creat Clear Calc 140.2 Estimated GFR > 60 Random Glucose 96 (60-115) mg/dL Calcium 9.3 (8.4-10.2) mg/dL Total Bilirubin 1.0 (0.0-1.0) mg/dL Direct Bilirubin 0.3 (0.0-0.5) mg/dL AST 33 H (5-31) U/L ALT 52 H (0-31) U/L Alkaline Phosphatase 48 (39-117) U/L Total Protein 7.3 (6.5-8.0) g/dL Albumin 4.5 (3.5-5.0) g/dL Beta HCG, Quant 91 mIU/mL Urine Color RED Urine Appearance Cloudy Urine pH 6.0 (5.0-9.0) Ur Specific [place] >= 1.030 H (1.005-1.025) Urine Protein 100 (2+) H (Neg-Trace) mg/dL Urine Glucose (UA) Negative (Negative) mg/dL Urine Ketones Trace (Negative) mg/dL Urine Blood Large (3+) H (Negative) Urine Nitrite Negative (Negative) Ur Leukocyte Esterase Negative (Negative) Urine RBC >20 H (0-2) /HPF Urine WBC 11-20 H (0-5) /HPF Ur Squamous Epith Cells >20 (0-2) /HPF Urine Bacteria 4+ (None Seen) Hyaline Casts 0-2 (0-2) /LPF Urine Test WEAKLY POSITIVE H (NEGATIVE) Radiology Impression Discussion of test interpretation with radiology: I have reviewed the radiologist's reading. Radiologist Impression: Impression: There is no intrauterine gestation however the quantitative HCG is reportedly extremely low. Continued follow-up recommended. Probable hydrosalpinx on the right. This document has been electronically signed by: Crow Sultana MD on 12/14/2024 16:45:04 Medications Administered Discontinued Medications Generic Name Dose Route Start Last Admin Trade Name Freq PRN Reason Stop Dose Admin Acetaminophen 975 mg 12/14/24 14:09 12/14/24 14:17 Acetaminophen 325 Mg Tablet PO 12/14/24 14:10 975 mg ONCE ONE Administration Discharge Plan Discharge Clinical Impression: Recurrent loss, Abnormal vaginal bleeding Patient Disposition: Home, Self-Care Instructions: Menorrhagia (ED) Additional Instructions: You were seen in the Emergency Department today for abnormal vaginal bleeding. Your blood counts were stable. Your beta hCG quant is 91. Ultrasound showed no evidence of . Continue Tylenol at home for pain, 1000 mg every 8 hours. Do not take aspirin containing products. You need to follow up with your OBGYN in 2 days for re-evaluation and repeat beta-hCG testing. Please return for worsening symptoms such as pain, dizziness, fainting, bleeding this is much heavier than a period and you are having large clots bigger than a golf ball. Please see list of OGBYN providers below if you do not have one. OBGYN and Midwifery [facility] [address] [place] [address] [phone] [facility]?s Health OBGYN [address] [facility] [phone] [facility] [address] [place] [phone] OBGYN and Midwifery [place] [phone] [facility] [place] [phone] Prescriptions: No Action atorvastatin 20 mg tablet 20 mg PO DAILY misoprostol 200 mcg tablet 800 mcg vaginal ONCE 1 Days Qty: 4 0RF Rx Instructions: Inset 800 mcg vaginal dose x1 Print Language: Malay
[2024-12-14 17:17] VITALS: BP 145/70; PULSE 85; RESP 18; TEMP 36.9; O2SAT 95
== END 2024-12-14 17:18 | disposition home or self-care (01) ==
PROVIDERS: Nurse Practitioner Family; Emergency Provider Emergency Medicine; PCP Dentist General Practice
DX: N93.8 Other specified abnormal uterine and vaginal bleeding (principal); N96 Recurrent pregnancy loss; R10.30 Lower abdominal pain, unspecified
CPT/HCPCS: 36415; 76801; 76817; 80048; 80076; 81001; 81025; 84702; 85025; 87086; 99284

== ENCOUNTER → 2024-12-14 13:34 | Outpatient (BNV) | payer MEDICAID, SELFPAY | PROVIDERS: Emergency Provider Emergency Medicine; PCP Dentist General Practice; Visit Provider Radiology Vascular & Interventional Radiology | DX: O99.891 Other specified diseases and conditions complicating pregnancy (principal); R10.2 Pelvic and perineal pain; Z3A.01 Less than 8 weeks gestation of pregnancy | CPT/HCPCS: 76801; 76817 ==